=== PATIENT | male | born 1955 | race Caucasian/White ===

== ENCOUNTER 2024-05-21 09:21 | Outpatient (AMB) | payer OTHER, SELFPAY ==
[2024-05-21 09:37] VITALS: BP 123/81; PULSE 57; RESP 18; TEMP 36.4; O2SAT 97; BMI 26.6
--- NOTE | 2024-05-21 09:37 | ORTHONT_ITS ---
Vital signs 05/21/24 09:37 Height 1.78 m Height Method Stated Weight 84.028 kg Weight Measurement Method Standing Scale BMI 26.6 BP 123/81 Blood Pressure Source Automatic Cuff Blood Pressure Location Right Upper Arm Position Sitting Respiration 18 Pulse 57 L Pulse Source Monitor Temp 97.6 F Temp Source Temporal Artery Scan Pulse Oximetry (%) 97 Oxygen Delivery Method Room Air Med/Allergies Allergies & Medications Allergies Sulfa (Sulfonamide Antibiotics) Allergy (Verified 05/21/24 09:39) FEVER IBUPROFEN Adverse Reaction (Uncoded 05/21/24 09:39) Medication Reconciliation allopurinol 100 mg tablet 100 mg PO QDAY 05/21/24 [History Confirmed 05/21/24] buspirone 10 mg tablet 10 mg PO BID 05/21/24 [History Confirmed 05/21/24] hydrochlorothiazide 12.5 mg tablet 12.5 mg PO QDAY 05/21/24 [History Confirmed 05/21/24] losartan 100 mg tablet 100 mg PO QDAY 05/21/24 [History Confirmed 05/21/24] primidone 50 mg tablet 50 mg PO QHS 05/21/24 [History Confirmed 05/21/24] Subjective Visit Visit for: new patient and knee Immunization / Flu Flu Vaccine in the Last 12 Months: No Flu Vaccine Exclusion Criteria: No Exclusion Criteria History of Present Illness Chief complaint: CHRONIC LEFT KNEE Date of injury / onset of symptoms: SINCE 14 YRS OLD Diaz is a pleasant 60-year-old male with left knee pain and left knee arthritis. 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 The pain is starting affect his quality life and happiness. He is interested in a total knee replacement Pain Pain level (0-10): 2 Pain duration: ALL DAY Pain location: anterior Pain quality: aching Pain timing: increases with activity Associated signs & symptoms: weakness and stiffness Ambulatory data Ambulatory device: none Treatments Number of previous injections: 2 Improvement with previous injections: No Improvement with PT: No Improvement with NSAIDS: n/a Review of Systems Review of Systems: All systems negative unless otherwise noted in HPI. Exam Exam Patient is in no acute distress and is cooperative with the examination today. Breathing is nonlabored. Patient has a normal mood and affect. Bilateral extremities were evaluated and demonstrates sensation intact to light touch. Palpable pedal pulses are present. No significant edema is present. Bilateral hips were examined. The patient has no pain with log roll of the hips. Internal rotation to 30 degrees and external rotation to 30 degrees is painless. Negative FADIR. Right knee was examined today. The right knee is in reasonable alignment. Range of motion from 0-120 degrees. Knee is stable to varus and valgus as well as AP translation with <5mm. Patient has a negative McMurrays. There is no pain with patellofemoral compression and no crepitus noted. The knee is nontender to palpation. Left knee was examined today. The left knee is in [varus] alignment. Range of motion from [0-115] degrees. Knee is stable to varus and valgus as well as AP translation with <5mm. Patient has a [negative] McMurrays. There is [no] pain with patellofemoral compression and [no] crepitus noted. The knee is [tender] to palpation [medially]. Assessment and Plan Problem List (1) Arthritis of left knee: Status: Acute Plan: Patient is a pleasant 60-year-old male with a left knee pain and left knee arthritis. We discussed total knee replacement in great detail today. His biggest worry is his range of motion. I discussed with him that is a little unpredictable if he is getting get 120 degrees of range of motion but most pe ople get at least 105. 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 We thus recommended either continue with conservative treatment or total knee replacement. He is still on the fence whether he wants total knee replacement. He would like to try viscosupplementation which I think is a reasonable option. We will try to get authorization for viscosupplementation and see him Back after this is done Advanced Care Planning Discussion Advance care planning discussed with:: patient Office Procedures GNS Level of Care Nursing/Assessment Patient Status: Initial/New Patient Nursing Assessment/Reassesment: Medication Reconciliation, Update PMH in EMR and Vital Signs Coordination of Care: Complex Care and Chronic Disease 1-5, Education Complex Pt/Fam, Consent,records obtained, informed consent, Results/Orders obtained and Staff clarify orders New Patient Charge New Patient Point Assignment: [id number] New Patient Point Charge: AQUATIC HABITAT BIOLOGIST Level 3 (2330-8220) Past Medical History Past Medical History Have you ever been diagnosed with any of the following: Cardiology Problems Hypertension: Yes Respiratory Problems Smoking: No Smoking Exposure: No Knee Pain PATIENT HAS HAD LEFT KNEE PAIN SINCE A CHILDHOOD INJURY AT THE AGE OF 14. SYMPTOMS COME AND GO, WORSENING DEPENDING ON CERTAIN MOVEMENTS. HAS TRIED 2 KNEE CORTISONE INJECTIONS. FIRST KNEE INJECTION DID WORK FOR ABOUT A YEAR THE SECOND DIDN'T HELP Involved knee: left Onset: gradual Description of injury: BOUNCE AND A POLE FELL ON KNEE Location of pain: anterior and superior Pain scale (0-10): 2 Character: dull ache Timing of pain: constant Exacerbated by: direct pressure and weight bearing Relieved by: nothing Associated symptoms: Reports swelling History of occupational/recreational activity with repetitive motion: No History of prior knee injury: No
== END 2024-05-21 10:20 | disposition home or self-care (01) ==
PROVIDERS: PCP Internal Medicine; Referring Provider Internal Medicine; Supervising Provider Orthopaedic Surgery Adult Reconstructive Orthopaedic Surgery; Visit Provider Orthopaedic Surgery Adult Reconstructive Orthopaedic Surgery
DX: M17.12 Unilateral primary osteoarthritis, left knee (principal); M25.562 Pain in left knee; I10 Essential (primary) hypertension
CPT/HCPCS: 99203; G0463

== ENCOUNTER 2024-06-11 10:31 | Outpatient (AMB) | payer OTHER, SELFPAY ==
[2024-06-11 10:55] VITALS: BP 118/75; PULSE 59; RESP 18; TEMP 36.8; O2SAT 97; BMI 26.8
--- NOTE | 2024-06-11 10:55 | PD.ORTHCLVIS ---
Vital signs 06/11/24 10:55 Height 1.78 m Height Method Measured Weight 84.822 kg Weight Measurement Method Standing Scale BMI 26.8 BP 118/75 Blood Pressure Source Automatic Cuff Blood Pressure Location Right Upper Arm Position Sitting Respiration 18 Pulse 59 L Pulse Source Monitor Temp 98.2 F Temp Source Temporal Artery Scan Pulse Oximetry (%) 97 Oxygen Delivery Method Room Air Med/Allergies Allergies & Medications Allergies Sulfa (Sulfonamide Antibiotics) Allergy (Verified 05/21/24 09:39) FEVER IBUPROFEN Adverse Reaction (Uncoded 05/21/24 09:39) Subjective Visit Visit for: follow up visit, knee and injections Immunization / Flu Flu Vaccine in the Last 12 Months: Yes Date of most recent flu vaccination: 03/02/24 Flu Vaccine Exclusion Criteria: No Exclusion Criteria History of Present Illness Chief complaint: PT HERE IN OFFICE FOR GEL INJECTIONS Date of injury / onset of symptoms: SINCE 14 YRS OLD Diaz is a pleasant 60-year-old male with left knee pain and left knee arthritis. 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 The pain is starting affect his quality life and happiness. He is interested in a total knee replacement but is worried about his range of motion. Personal History Occupation: RETIRED Red flag PMH: none Pain Pain level (0-10): 1 Pain duration: OFF AND ON Pain location: inside (medial), outside (lateral), anterior and posterior Pain quality: dull and aching Pain timing: increases with activity Associated signs & symptoms: none Ambulatory data Ambulatory device: none Treatments Number of previous injections: 2 Improvement with previous injections: No Improvement with PT: No Improvement with NSAIDS: n/a Review of Systems Review of Systems: All systems negative unless otherwise noted in HPI. Exam Exam Patient is in no acute distress and is cooperative with the examination today. Breathing is nonlabored. Patient has a normal mood and affect. Bilateral extremities were evaluated and demonstrates sensation intact to light touch. Palpable pedal pulses are present. No significant edema is present. Bilateral hips were examined. The patient has no pain with log roll of the hips. Internal rotation to 30 degrees and external rotation to 30 degrees is painless. Negative FADIR. Right knee was examined today. The right knee is in reasonable alignment. Range of motion from 0-120 degrees. Knee is stable to varus and valgus as well as AP translation with <5mm. Patient has a negative McMurrays. There is no pain with patellofemoral compression and no crepitus noted. The knee is nontender to palpation. Left knee was examined today. The left knee is in [varus] alignment. Range of motion from [0-115] degrees. Knee is stable to varus and valgus as well as AP translation with <5mm. Patient has a [negative] McMurrays. There is [no] pain with patellofemoral compression and [no] crepitus noted. The knee is [tender] to palpation [medially]. Assessment and Plan Problem List (1) Arthritis of left knee: Status: Acute Plan: Patient is a pleasant 60-year-old male with a left knee pain and left knee arthritis. We discussed total knee replacement in great detail today. His biggest worry is his range of motion. I discussed with him that is a little unpredictable if he is getting get 120 degrees of range of motion but most people get at least 105. 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 We thus recommended either continue with conservative treatment or total knee replacement. He is still on the fence whether he wants total knee replacement. He would like to try viscosupplementation which I think is a reasonable option. We will Plan for viscosupplementation today. Plan Recommend knee hyaluronic acid injection as patient would like to proceed with conservative treatment at this time. The risks and benefits of the procedure were reviewed with the patient and patient gave verbal consent to continue with the procedure. Procedure: performed by Dr. Seay Using sterile technique the left knee was thoroughly prepped with alcohol, and the entire syringe of synvisc one was injected without resistance into the medial tibial femoral joint space. The patient tolerated the procedure. Advanced Care Planning Discussion Advance care planning discussed with:: patient Office Procedures GNS Level of Care Nursing/Assessment Patient Status: Established Patient Nursing Assessment/Reassesment: BP Monitoring, Medication Reconciliation, Update PMH in EMR and Vital Signs Coordination of Care: Complex Care and Chronic Disease 1-5, Consent,records obtained, informed consent, Lab and Imaging orders and Results/Orders obtained Established Patient Charge Established Patient Point Assignment: 95 Established Patient Point Charge: EP Level 3 (80-115) Surgical Proc/IM SQ injection Major Surgical Procedure: Yes Medication Given Medication Given Medication Given: Yes Documented Dose Given: 2 Route: Infiitration Office Meds Hyalgan 10 mg/mL intra-articular syringe Performing Provider: Lanre Seay MD Performing Location: [facility] Administered by: Lanre Seay MD on 06/11/24 11:55 Dose Route Admin Location Dispensed Lot Number Expiration Date N[employer] Materials Planning Manager 20 mg intra-articular 2 mL [id number] 02/28/26 [address]-60 Past Medical History Past Medical History Have you ever been diagnosed with any of the following: Cardiology Problems Hypertension: Yes Respiratory Problems Smoking: No Smoking Exposure: No
== END 2024-06-11 11:29 | disposition home or self-care (01) ==
PROVIDERS: PCP Internal Medicine; Referring Provider Internal Medicine; Supervising Provider Orthopaedic Surgery Adult Reconstructive Orthopaedic Surgery; Visit Provider Orthopaedic Surgery Adult Reconstructive Orthopaedic Surgery
DX: M17.12 Unilateral primary osteoarthritis, left knee (principal); M25.562 Pain in left knee; I10 Essential (primary) hypertension
CPT/HCPCS: 20610; 99213; G0463; J7325

== ENCOUNTER 2025-02-01 13:13 | Outpatient (AMB) | payer OTHER, SELFPAY ==
--- NOTE | 2025-02-01 13:42 | XR_ITS ---
Examination: Bilateral knees 2 views Right lateral knee left knee 2 views Bilateral AP knee single view: Bilateral AP knees standing single view, bilateral PA knees standing single view, standing bilateral knee left lateral knee 2 views bilateral axillae single view total 5 views Date and time: February 01, 2025 1353 hours INDICATIONS: Knee pain chronic FINDINGS: Significant osteopenia Severe narrowing, [id number] medial joint space left knee Moderate narrowing medial joint space right knee Bilateral moderate osteoarthritis patellofemoral joints No fracture is IMPRESSION: Severe narrowing bone on bone medial joint space left knee
[2025-02-01 13:47] VITALS: BP 141/91; PULSE 56; RESP 18; TEMP 36.6; O2SAT 97; BMI 26.8
--- NOTE | 2025-02-01 13:47 | PD.ORTHCLVIS ---
Vital signs 02/01/25 13:47 Height 1.78 m Height Method Stated Weight 84.992 kg Weight Measurement Method Standing Scale BMI 26.8 BP 141/91 H Blood Pressure Source Automatic Cuff Blood Pressure Location Left Upper Arm Position Sitting Respiration 18 Pulse 56 L Pulse Source Monitor Temp 97.9 F Temp Source Temporal Artery Scan Pulse Oximetry (%) 97 Oxygen Delivery Method Room Air Med/Allergies Allergies & Medications Allergies Sulfa (Sulfonamide Antibiotics) Allergy (Verified 02/01/25 13:48) FEVER IBUPROFEN Adverse Reaction (Uncoded 02/01/25 13:48) Medication Reconciliation allopurinol 100 mg tablet 100 mg PO QDAY 05/21/24 [History Confirmed 02/01/25] buspirone 10 mg tablet 10 mg PO BID 05/21/24 [History Confirmed 02/01/25] hydrochlorothiazide 12.5 mg tablet 12.5 mg PO QDAY 05/21/24 [History Confirmed 02/01/25] losartan 100 mg tablet 100 mg PO QDAY 05/21/24 [History Confirmed 02/01/25] primidone 50 mg tablet 50 mg PO QHS 05/21/24 [History Confirmed 02/01/25] Exam Exam Patient is in no acute distress and is cooperative with the examination today. Breathing is nonlabored. Patient has a normal mood and affect. Bilateral extremities were evaluated and demonstrates sensation intact to light touch. Palpable pedal pulses are present. No significant edema is present. Bilateral hips were examined. The patient has no pain with log roll of the hips. Internal rotation to 30 degrees and external rotation to 30 degrees is painless. Negative FADIR. Right knee was examined today. The right knee is in reasonable alignment. Range of motion from 0-120 degrees. Knee is stable to varus and valgus as well as AP translation with <5mm. Patient has a negative McMurrays. There is no pain with patellofemoral compression and no crepitus noted. The knee is nontender to palpation. Left knee was examined today. The left knee is in [varus] alignment. Range of motion from [0-115] degrees. Knee is stable to varus and valgus as well as AP translation with <5mm. Patient has a [negative] McMurrays. There is [no] pain with patellofemoral compression and [no] crepitus noted. The knee is [tender] to palpation [medially]. X-rays from 02/01/2025 demonstrate significant joint space narrowing medially. Assessment and Plan Problem List (1) Arthritis of left knee: Status: Acute Plan: Patient is a pleasant 69-year-old male with a left knee pain and left knee arthritis. We discussed partial and total knee replacement in great detail. The pain is isolated to the medial compartment. He does not have significant varus deformity we thus discussed partial knee replacement option. He understands that there is a risk that we will convert to a total knee replacement. We discussed the risks and benefits of surgery clued infection, progression of the arthritis in the lateral compartment, revision surgery, fracture, damage to nerves and vessels. He understands the risks and would like to proceed with surgery. He understands that there is a risk of converting to a total knee replacement should there be more arthritis than anticipated. I do think he is a good candidate as he is isolated medial compartment disease Advanced Care Planning Discussion Advance care planning discussed with:: patient Office Procedures GNS Level of Care Nursing/Assessment Patient Status: Established Patient Nursing Assessment/Reassesment: Medication Reconciliation, Update PMH in EMR and Vital Signs Coordination of Care: Complex Care and Chronic Disease 1-5, Education Complex Pt/Fam, Consent,records obtained, informed consent, 1 Ins Authorization, Results/Orders obtained and Staff clarify orders Established Patient Charge Established Patient Point Assignment: 110 Established Patient Point Charge: EP Level 3 (80-115) MA Intake Visit Data Collection New Patient or Established: Established Patient (seen at [facility] within 3 years) Reason for Visit:: LEFT KNEE PAIN Seen by Clinical Staff ONLY (RN/MA): No PCP or OBGYN visit in last 3 months: Yes Hx Now: No Do You Feel Safe at Home: Yes Authorities Contacted: N/A Questionairres Past Medical History Past Medical History Have you ever been diagnosed with any of the following: Cardiology Problems Hypertension: Yes Respiratory Problems Smoking: No Smoking Exposure: No Subjective Visit Visit for: follow up visit and knee Immunization / Flu Flu Vaccine in the Last 12 Months: No Flu Vaccine Exclusion Criteria: No Exclusion Criteria History of Present Illness Chief complaint: Left knee pain 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 He is significant left knee pain. He has failed hyaluronic acid injections as well as physical therapy in the past. The pain is affecting his quality life and happiness. He now has pain all the time Pain Associated signs & symptoms: none Ambulatory data Ambulatory device: none Treatments Improvement with previous injections: No Improvement with PT: No Improvement with NSAIDS: no Review of Systems Review of Systems: All systems negative unless otherwise noted in HPI.
== END 2025-02-01 13:56 | disposition home or self-care (01) ==
PROVIDERS: PCP Internal Medicine; Referring Provider Internal Medicine; Supervising Provider Orthopaedic Surgery Adult Reconstructive Orthopaedic Surgery; Visit Provider Orthopaedic Surgery Adult Reconstructive Orthopaedic Surgery
DX: M17.12 Unilateral primary osteoarthritis, left knee (principal); M25.562 Pain in left knee; I10 Essential (primary) hypertension
CPT/HCPCS: 73564; 99213; G0463

== ENCOUNTER → 2025-02-15 | Outpatient (CLI) | payer OTHER, SELFPAY ==
--- NOTE | 2025-02-15 12:00 | XR_ITS ---
Examination: CT left lower extremity without intravenous contrast, without contrast. 2-D sagittal reconstructions. 2-D coronal reconstructions. 3-D reconstructions. Date and time of exam:February 15, 2025 1210 hours INDICATIONS: Left knee pain 5 years getting worse over the last 2 months, diagnosis primary left knee unilateral osteoarthritis CTDI: vol (mGy):9.72 DLP: (mGycm):767 Technique: Multiple 1.25 mm axial sections of the left lower extremity without intravenous contrast have been obtained. 2-D sagittal and coronal reconstructions have been obtained. 3-D reconstructions have been obtained. Low dose protocols were performed. One or more of the following dose reduction techniques were used; automated exposure control, adjustment of the mA and/or KV according to patient size, use of iterative reconstruction technique. Findings: Moderate osteopenia Moderate narrowing left hip joint No left hip fracture or dislocation, no avascular necrosis. Severe narrowing medial joint space left knee Significant osteoarthritis lateral patellofemoral joints No fracture No patellar dislocation IMPRESSION: Advanced left knee tricompartment osteoarthritis, including severe narrowing medial joint space
== END | disposition home or self-care (01) ==
LOC: CCTX 12:01
PROVIDERS: PCP Internal Medicine; Referring Provider Orthopaedic Surgery Adult Reconstructive Orthopaedic Surgery; Visit Provider Orthopaedic Surgery Adult Reconstructive Orthopaedic Surgery
DX: M17.12 Unilateral primary osteoarthritis, left knee (principal); M25.862 Other specified joint disorders, left knee
CPT/HCPCS: 73700

== ENCOUNTER 2025-03-10 11:08 | Outpatient (AMB) | payer OTHER, SELFPAY ==
--- NOTE | 2025-03-10 11:16 | PD.ORTHCLVIS ---
Vital signs 03/10/25 11:18 Height 1.78 m Height Method Measured Weight 83.206 kg Weight Measurement Method Standing Scale BMI 26.2 BP 130/82 Blood Pressure Source Automatic Cuff Blood Pressure Location Left Upper Arm Position Sitting Respiration 18 Pulse 74 Pulse Source Monitor Temp 97.8 F Temp Source Temporal Artery Scan Pulse Oximetry (%) 97 Oxygen Delivery Method Room Air Med/Allergies Allergies & Medications Allergies Sulfa (Sulfonamide Antibiotics) Allergy (Verified 03/10/25 11:19) FEVER IBUPROFEN Adverse Reaction (Uncoded 03/10/25 11:19) Medication Reconciliation buspirone 10 mg tablet 10 mg PO BID 05/21/24 [History Confirmed 03/10/25] hydrochlorothiazide 12.5 mg tablet 12.5 mg PO QDAY 05/21/24 [History Confirmed 03/10/25] losartan 100 mg tablet 100 mg PO QDAY 05/21/24 [History Confirmed 03/10/25] acetaminophen 500 mg tablet (Acetaminophen Extra Strength) 1,000 mg (2 x 500 mg) PO Q6H PRN pain #90 tabs 02/23/25 [Rx Confirmed 03/10/25] aspirin 81 mg tablet,delayed release 81 mg PO BID #60 tabs 02/23/25 [Rx Confirmed 03/10/25] doxycycline hyclate 100 mg tablet 100 mg PO BID #14 tabs 02/23/25 [Rx Confirmed 03/10/25] gabapentin 300 mg capsule 300 mg PO .qhs #30 caps 02/23/25 [Rx Confirmed 03/10/25] sennosides 8.6 mg-docusate sodium 50 mg tablet (Senna-S) 1 tab-cap PO QDAY #30 tabs 02/23/25 [Rx Confirmed 03/10/25] cyclobenzaprine 5 mg tablet 5 mg PO QHS PRN muscle spasm #30 tabs 03/10/25 [Rx] oxycodone 5 mg tablet 5 mg PO Q6H PRN pain #28 tabs 03/10/25 [Rx] Exam Exam Patient is in no acute distress and is cooperative with the examination today. Patient has a normal mood and affect. Breathing is nonlabored. In no respiratory distress. Bilateral extremities were evaluated and demonstrates sensation intact to light touch. Palpable pedal pulses are present. No significant edema is present. Left knee incisions clean dry intact Assessment and Plan Problem List (1) Arthritis of left knee: Status: Acute Plan: Patient is a pleasant 69-year-old male with a left knee pain and left knee arthritis. He is doing well status post partial knee replacement. He should continue therapy. Will see him in approximately 4 weeks with new x-rays He should continue to work with physical therapy Advanced Care Planning Discussion Advance care planning discussed with:: patient Office Procedures GNS Level of Care Nursing/Assessment Patient Status: Established Patient Nursing Assessment/Reassesment: Medication Reconciliation, Orthostatic Vitals, Update PMH in EMR and Vital Signs Coordination of Care: Complex Care and Chronic Disease 1-5, Education Complex Pt/Fam, Consent,records obtained, informed consent, Results/Orders obtained and Staff clarify orders Established Patient Charge Established Patient Point Assignment: 105 Established Patient Point Charge: Level 3 (80-115) MA Intake Visit Data Collection New Patient or Established: Established Patient (seen at [facility] within 3 years) Reason for Visit:: 2 WEEK F/U LEFT TKA Seen by Clinical Staff ONLY (RN/MA): No Certified Alcohol Drug Counselor Required: No PCP or OBGYN visit in last 3 months: Yes Hx Now: No Do You Feel Safe at Home: Yes Authorities Contacted: N/A Questionairres Past Medical History Past Medical History Have you ever been diagnosed with any of the following: Neurological Problems Seizures: No Migraine: Yes Cardiology Problems Congestive Heart Failure: No Hypertension: Yes Respiratory Problems Chronic Obstructive Pulmonary Disease (COPD): No Smoking: No Smoking Exposure: No Stomache/Intestinal Problems Hepatitis: No Genital/Urinary Problems Renal Disease: No Benign Prostatic Hyperplasia: Yes Musculoskeletal Problems Arthritis: Yes Gout: Yes (a few yrs ago) Endocrine Problems Diabetes Mellitus Type 1: No Diabetes Mellitus Type 2: No Other Problems Hospitalization: Yes Shingles: No Blood Transfusions: No Anesthesia Reactions: No Chicken Pox: Yes Measles: Yes Cancer: No Subjective Visit Visit for: follow up visit and knee Immunization / Flu Flu Vaccine in the Last 12 Months: No Flu Vaccine Exclusion Criteria: No Exclusion Criteria History of Present Illness Chief complaint: Left knee pain 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 He is doing well status post left partial knee replacement. He reports he is doing Pain Pain level (0-10): 4 Associated signs & symptoms: none Ambulatory data Ambulatory device: cane Treatments Improvement with previous injections: No Improvement with PT: No Improvement with NSAIDS: no Review of Systems Review of Systems: All systems negative unless otherwise noted in HPI.
[2025-03-10 11:18] VITALS: BP 130/82; PULSE 74; RESP 18; TEMP 36.6; O2SAT 97; BMI 26.2
== END 2025-03-10 11:26 | disposition home or self-care (01) ==
LOC: HODSRG 11:08
PROVIDERS: PCP Internal Medicine; Referring Provider Internal Medicine; Supervising Provider Orthopaedic Surgery Adult Reconstructive Orthopaedic Surgery; Visit Provider Orthopaedic Surgery Adult Reconstructive Orthopaedic Surgery
DX: M17.12 Unilateral primary osteoarthritis, left knee (principal); M25.562 Pain in left knee; Z96.652 Presence of left artificial knee joint; I10 Essential (primary) hypertension
CPT/HCPCS: 99213; G0463

== ENCOUNTER 2025-03-29 14:15 | Outpatient (AMB) | payer OTHER, SELFPAY ==
--- NOTE | 2025-03-29 14:25 | PD.ORTHCLVIS ---
Vital signs 03/29/25 14:27 Height 1.78 m Height Method Measured Weight 84.623 kg Weight Measurement Method Standing Scale BMI 26.6 BP 133/81 H Blood Pressure Source Automatic Cuff Blood Pressure Location Left Upper Arm Position Sitting Respiration 18 Pulse 73 Pulse Source Monitor Temp 97.7 F Temp Source Temporal Artery Scan Pulse Oximetry (%) 96 Oxygen Delivery Method Room Air Med/Allergies Allergies & Medications Allergies Sulfa (Sulfonamide Antibiotics) Allergy (Verified 03/29/25 14:28) FEVER IBUPROFEN Adverse Reaction (Uncoded 03/29/25 14:28) Medication Reconciliation buspirone 10 mg tablet 10 mg PO BID 05/21/24 [History Confirmed 03/29/25] hydrochlorothiazide 12.5 mg tablet 12.5 mg PO QDAY 05/21/24 [History Confirmed 03/29/25] losartan 100 mg tablet 100 mg PO QDAY 05/21/24 [History Confirmed 03/29/25] acetaminophen 500 mg tablet (Acetaminophen Extra Strength) 1,000 mg (2 x 500 mg) PO Q6H PRN pain #90 tabs 02/23/25 [Rx Confirmed 03/29/25] aspirin 81 mg tablet,delayed release 81 mg PO BID #60 tabs 02/23/25 [Rx Confirmed 03/29/25] doxycycline hyclate 100 mg tablet 100 mg PO BID #14 tabs 02/23/25 [Rx Confirmed 03/29/25] gabapentin 300 mg capsule 300 mg PO .qhs #30 caps 02/23/25 [Rx Confirmed 03/29/25] sennosides 8.6 mg-docusate sodium 50 mg tablet (Senna-S) 1 tab-cap PO QDAY #30 tabs 02/23/25 [Rx Confirmed 03/29/25] cyclobenzaprine 5 mg tablet 5 mg PO QHS PRN muscle spasm #30 tabs 03/10/25 [Rx Confirmed 03/29/25] oxycodone 5 mg tablet 5 mg PO Q6H PRN pain #28 tabs 03/10/25 [Rx Confirmed 03/29/25] Exam Exam Patient is in no acute distress and is cooperative with the examination today. Patient has a normal mood and affect. Breathing is nonlabored. In no respiratory distress. Bilateral extremities were evaluated and demonstrates sensation intact to light touch. Palpable pedal pulses are present. No significant edema is present. Left knee incisions clean dry intact. ROM is 0-120 Assessment and Plan Problem List (1) Arthritis of left knee: Status: Acute Plan: Patient is a pleasant 69-year-old male with a left knee pain and left knee arthritis. He is doing well status post partial knee replacement. He should continue therapy. W We will see him back in 6 weeks with new xrays Advanced Care Planning Discussion Advance care planning discussed with:: patient Office Procedures GNS Level of Care Nursing/Assessment Patient Status: Established Patient Nursing Assessment/Reassesment: Medication Reconciliation, Update PMH in EMR and Vital Signs Coordination of Care: Complex Care and Chronic Disease 1-5, Education Complex Pt/Fam, Consent,records obtained, informed consent, Results/Orders obtained and Staff clarify orders Established Patient Charge Established Patient Point Assignment: 95 Established Patient Point Charge: EP Level 3 (80-115) MA Intake Visit Data Collection New Patient or Established: Established Patient (seen at [facility] within 3 years) Reason for Visit:: 6 WEEK LEFT TKA Seen by Clinical Staff ONLY (RN/MA): No Seat Joiner Required: No PCP or OBGYN visit in last 3 months: Yes Hx Now: No Do You Feel Safe at Home: Yes Authorities Contacted: N/A Questionairres Past Medical History Past Medical History Have you ever been diagnosed with any of the following: Neurological Problems Seizures: No Migraine: Yes Cardiology Problems Congestive Heart Failure: No Hypertension: Yes Respiratory Problems Chronic Obstructive Pulmonary Disease (COPD): No Smoking: No Smoking Exposure: No Stomache/Intestinal Problems Hepatitis: No Genital/Urinary Problems Renal Disease: No Benign Prostatic Hyperplasia: Yes Musculoskeletal Problems Arthritis: Yes Gout: Yes (a few yrs ago) Endocrine Problems Diabetes Mellitus Type 1: No Diabetes Mellitus Type 2: No Other Problems Hospitalization: Yes Shingles: No Blood Transfusions: No Anesthesia Reactions: No Chicken Pox: Yes Measles: Yes Cancer: No Subjective Visit Visit for: follow up visit and knee Immunization / Flu Flu Vaccine in the Last 12 Months: No Flu Vaccine Exclusion Criteria: No Exclusion Criteria History of Present Illness Chief complaint: 6 WEEK LEFT TKA 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 He is doing well status post left partial knee replacement. He reports he is doing well Pain Pain level (0-10): 4 Associated signs & symptoms: none Ambulatory data Ambulatory device: cane Treatments Improvement with previous injections: No Improvement with PT: No Improvement with NSAIDS: no Review of Systems Review of Systems: All systems negative unless otherwise noted in HPI.
[2025-03-29 14:27] VITALS: BP 133/81; PULSE 73; RESP 18; TEMP 36.5; O2SAT 96; BMI 26.6
--- NOTE | 2025-03-29 14:31 | XR_ITS ---
Examination: Bilateral AP knees single view Left knee PA lateral axial 3 views TECHNIQUE: Bilateral AP knees standing single view Left knee standing PA flexion, standing lateral, axial left knee 3 views total 4 views Date and time: March 29, 2025, 1438 hours INDICATIONS: Status post left knee surgery February 23, 2025 FINDINGS: Moderate osteopenia. Mild to moderate narrowing medial joint space right knee Medial left knee hemiarthroplasty. Satisfactory alignment No fracture Moderate osteoarthritis left patellofemoral joint IMPRESSION: Medial left knee hemiarthroplasty with satisfactory alignment
== END 2025-03-29 14:37 | disposition home or self-care (01) ==
LOC: HODSRG 14:15
PROVIDERS: PCP Internal Medicine; Referring Provider Internal Medicine; Supervising Provider Orthopaedic Surgery Adult Reconstructive Orthopaedic Surgery; Visit Provider Orthopaedic Surgery Adult Reconstructive Orthopaedic Surgery
DX: M17.12 Unilateral primary osteoarthritis, left knee (principal); M25.562 Pain in left knee; Z96.652 Presence of left artificial knee joint; I10 Essential (primary) hypertension
CPT/HCPCS: 73564; 99213; G0463

== ENCOUNTER 2025-05-12 11:13 | Outpatient (AMB) | payer OTHER, SELFPAY ==
--- NOTE | 2025-05-12 11:19 | PD.ORTHCLVIS ---
Vital signs 05/12/25 11:22 Height 1.78 m Height Method Measured Weight 86.664 kg Weight Measurement Method Standing Scale BMI 27.3 BP 126/80 Blood Pressure Source Automatic Cuff Blood Pressure Location Left Upper Arm Position Sitting Respiration 18 Pulse 76 Pulse Source Monitor Temp 97.4 F Temp Source Temporal Artery Scan Pulse Oximetry (%) 97 Oxygen Delivery Method Room Air Med/Allergies Allergies & Medications Allergies Sulfa (Sulfonamide Antibiotics) Allergy (Verified 05/12/25 11:23) FEVER IBUPROFEN Adverse Reaction (Uncoded 05/12/25 11:23) Medication Reconciliation buspirone 10 mg tablet 10 mg PO BID 05/21/24 [History Confirmed 05/12/25] hydrochlorothiazide 12.5 mg tablet 12.5 mg PO QDAY 05/21/24 [History Confirmed 05/12/25] losartan 100 mg tablet 100 mg PO QDAY 05/21/24 [History Confirmed 05/12/25] acetaminophen 500 mg tablet (Acetaminophen Extra Strength) 1,000 mg (2 x 500 mg) PO Q6H PRN pain #90 tabs 02/23/25 [Rx Confirmed 05/12/25] aspirin 81 mg tablet,delayed release 81 mg PO BID #60 tabs 02/23/25 [Rx Confirmed 05/12/25] doxycycline hyclate 100 mg tablet 100 mg PO BID #14 tabs 02/23/25 [Rx Confirmed 05/12/25] sennosides 8.6 mg-docusate sodium 50 mg tablet (Senna-S) 1 tab-cap PO QDAY #30 tabs 02/23/25 [Rx Confirmed 05/12/25] cyclobenzaprine 5 mg tablet 5 mg PO QHS PRN muscle spasm #30 tabs 03/10/25 [Rx Confirmed 05/12/25] gabapentin 300 mg capsule 300 mg PO .qhs #30 caps 04/29/25 [Rx Confirmed 05/12/25] oxycodone 5 mg tablet 5 mg PO Q6H PRN pain #28 tabs 04/29/25 [Rx Confirmed 05/12/25] Exam Exam Patient is in no acute distress and is cooperative with the examination today. Patient has a normal mood and affect. Breathing is nonlabored. In no respiratory distress. Bilateral extremities were evaluated and demonstrates sensation intact to light touch. Palpable pedal pulses are present. No significant edema is present. Left knee incisions clean dry intact. ROM is 0-120 Assessment and Plan Problem List (1) Arthritis of left knee: Status: Acute Plan: Patient is a pleasant 69-year-old male with a left knee pain and left knee arthritis. He is doing well status post partial knee replacement. He is doing well and we will see him back in 4 months Advanced Care Planning Discussion Advance care planning discussed with:: patient Office Procedures GNS Level of Care Nursing/Assessment Patient Status: Established Patient Nursing Assessment/Reassesment: Medication Reconciliation, Update PMH in EMR and Vital Signs Coordination of Care: Complex Care and Chronic Disease 1-5, Education Complex Pt/Fam, Consent,records obtained, informed consent, Results/Orders obtained and Staff clarify orders Established Patient Charge Established Patient Point Assignment: 95 Established Patient Point Charge: Level 3 (80-115) MA Intake Visit Data Collection New Patient or Established: Established Patient (seen at [facility] within 3 years) Reason for Visit:: F/U LEFT TKA Seen by Clinical Staff ONLY (RN/MA): No Program And Research Coordinator Required: No PCP or OBGYN visit in last 3 months: Yes Hx Now: No Do You Feel Safe at Home: Yes Authorities Contacted: N/A Questionairres Past Medical History Past Medical History Have you ever been diagnosed with any of the following: Neurological Problems Seizures: No Migraine: Yes Cardiology Problems Congestive Heart Failure: No Hypertension: Yes Respiratory Problems Chronic Obstructive Pulmonary Disease (COPD): No Smoking: No Smoking Exposure: No Stomache/Intestinal Problems Hepatitis: No Genital/Urinary Problems Renal Disease: No Benign Prostatic Hyperplasia: Yes Musculoskeletal Problems Arthritis: Yes Gout: Yes (a few yrs ago) Endocrine Problems Diabetes Mellitus Type 1: No Diabetes Mellitus Type 2: No Other Problems Hospitalization: Yes Shingles: No Blood Transfusions: No Anesthesia Reactions: No Chicken Pox: Yes Measles: Yes Cancer: No Subjective Visit Visit for: follow up visit and knee Immunization / Flu Flu Vaccine in the Last 12 Months: No Flu Vaccine Exclusion Criteria: No Exclusion Criteria History of Present Illness Chief complaint: 6 WEEK LEFT TKA 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 He is doing well status post left partial knee replacement. He reports he is doing well Pain Pain level (0-10): 4 Associated signs & symptoms: none Ambulatory data Ambulatory device: cane Treatments Improvement with previous injections: No Improvement with PT: No Improvement with NSAIDS: no Review of Systems Review of Systems: All systems negative unless otherwise noted in HPI.
[2025-05-12 11:22] VITALS: BP 126/80; PULSE 76; RESP 18; TEMP 36.3; O2SAT 97; BMI 27.3
== END 2025-05-12 11:31 | disposition home or self-care (01) ==
LOC: HODSRG 11:13
PROVIDERS: PCP Internal Medicine; Referring Provider Internal Medicine; Supervising Provider Orthopaedic Surgery Adult Reconstructive Orthopaedic Surgery; Visit Provider Orthopaedic Surgery Adult Reconstructive Orthopaedic Surgery
DX: Z96.652 Presence of left artificial knee joint (principal)
CPT/HCPCS: 99213; G0463